=== PATIENT | male | born 1950 | race Two or more races ===

== ENCOUNTER 2020-04-23 14:50 | Inpatient (IN) | payer MEDICARE ==
[~2020-04-23] VITALS: Ht 170.2 cm; Wt 85.9 kg
[2020-04-23 17:00] VITALS: BP 154/78
--- NOTE | 2020-04-23 17:00 | NUR ---
Telemetry DIRECT admit RANULFO YU JR admitted to Telemetry unit after SBAR received. Patient oriented to DELROY BABCOCK, RN primary RN, unit, room, bed, and unit policies regarding patient care and visiting hours. TELE BOX REQUESTED FROM [place]. Patient weighed by bedscale and encouraged to call if they need something. All questions and concerns addressed, patient verbalized understanding.
[2020-04-23] MEDS ORDERED: cloNIDine HCL 0.1 MG TAB PO PRN (18:00)
[2020-04-23] MEDS ORDERED: MORPHINE SULF INJ 2 MG/ML SYRINGE 1ML IV PRN ×3 (18:00)
[2020-04-23] MEDS ORDERED: ONDANSETRON HCL 4 MG/2 ML VIAL IV PRN (18:00)
[2020-04-23] MEDS ORDERED: ALUM & MAG HYDROX-SIMETH LIQ(MAALOX) 30 ML PO ONE (18:00)
[2020-04-23] MEDS ORDERED: MORPHINE SULFATE 4 MG/ML SYR/VIAL IV PRN (18:00)
[2020-04-23] MEDS ORDERED: LORazepam 0.5 MG TAB PO PRN (18:00)
[2020-04-23] MEDS ORDERED: HYDROcodone-ACET 5/325MG TAB PO PRN (18:00)
[2020-04-23] MEDS ORDERED: NITROGLYCERIN 0.4 MG SL TAB SL PRN ×3 (18:00)
[2020-04-23 18:05] VITALS: BP 154/78
[2020-04-23] MEDS: SODIUM CHLORIDE 0.9% 1,000 ML IV SCH (18:30)
[2020-04-23 18:46] LABS: Basophils # (auto) 0 10 ^3/uL (0-0.2); Basophils % (auto) 0.5 % (0.0-2.0); Eosinophils # (auto) 0.4 10 ^3/uL (0-0.8); Eosinophils % (auto) 4.3 % (0.0-7.0); Hematocrit 46.2 % (41.0-53.0); Hemoglobin 15.8 g/dL (13.5-17.5); Lymphocytes # (auto) 2.4 10 ^3/uL (0.4-5.4); Lymphocytes % (auto) 28.9 % (10.0-50.0); Mean Corpuscular Hgb Conc. 34.2 g/dL (32.0-36.0); Mean Corpuscular Volume 102.2 fL (80.0-100.0); Monocytes # (auto) 0.7 10 ^3/uL (0-1.3); Monocytes % (auto) 7.9 % (0.0-12.0); Neutrophils # (auto) 4.8 10 ^3/uL (1.6-8.6); Neutrophils % (auto) 58.4 % (37.0-80.0); Nucleated Red Blood Cells % 0.2 %; Platelet Count (auto) 173 10^3/uL (140-450); Red Blood Cells 4.52 10^6/uL (4.5-5.90); Red Cell Distribution Width 13.8 % (11.8-14.3); White Blood Cell 8.3 10^3/uL (4.4-10.8)
[2020-04-23 18:49] LABS: Albumin 3.7 g/dL (3.4-5.0); Magnesium 2.4 mg/dL (1.6-2.6)
[2020-04-23 18:56] LABS: BUN/Creatinine Ratio 14.4; Bilirubin, Total 0.7 mg/dL (0.2-1.0); Total Protein 7.7 g/dL (6.4-8.2)
--- NOTE | 2020-04-23 19:02 | NUR ---
CRITICAL LAB: [facility] [phone] DR. HAUSER NOTIFIED.
--- NOTE | 2020-04-23 19:05 | NUR ---
NEW ORDERS FROM DR. HAUSER. ORDERS CARRIED OUT.
[2020-04-23 19:07] LABS: INR 1.01 (0.9-1.15); Partial Thromboplastin Time 29.4 sec (23.64-32.05)
[2020-04-23] MEDS ORDERED: ENOXAPARIN SOD 100 MG/1 ML SYRINGE SC ONE (19:15)
--- NOTE | 2020-04-23 19:20 | NUR ---
Opening Shift Note Patient in bed resting. AO x4 w/ HOB at 30 degrees, bed locked in lowest position, and call light within reach. No signs of distress or SOB. Will continue to monitor.
[2020-04-23] MEDS: ATORVASTATIN 20 MG TAB PO SCH (21:50)
[2020-04-23] MEDS: METOPROLOL TARTRATE 50 MG TAB PO SCH (21:51)
[2020-04-23 22:00] VITALS: BP 125/72
--- NOTE | 2020-04-23 22:05 | NUR ---
Received Tele Box #[id number].
[2020-04-24 05:00] VITALS: BP 111/62
[2020-04-24] MEDS: SODIUM CHLORIDE 0.9% 1,000 ML IV SCH ×2 (06:40→21:38)
[2020-04-24 06:45] LABS: Basophils # (auto) 0 10 ^3/uL (0-0.2); Lymphocytes # (auto) 1.9 10 ^3/uL (0.4-5.4); Monocytes # (auto) 0.6 10 ^3/uL (0-1.3); White Blood Cell 7.6 10^3/uL (4.4-10.8)
[2020-04-24 06:49] LABS: Basophils % (auto) 0.6 % (0.0-2.0); Eosinophils # (auto) 0.4 10 ^3/uL (0-0.8); Eosinophils % (auto) 5.9 % (0.0-7.0); Hematocrit 43.5 % (41.0-53.0); Lymphocytes % (auto) 25.1 % (10.0-50.0); Mean Corpuscular Hemoglobin 35.2 pg (28.0-32.0); Mean Corpuscular Hgb Conc. 34.4 g/dL (32.0-36.0); Mean Corpuscular Volume 102.4 fL (80.0-100.0); Neutrophils # (auto) 4.6 10 ^3/uL (1.6-8.6); Neutrophils % (auto) 60.4 % (37.0-80.0); Nucleated Red Blood Cells % 0.1 %; Platelet Count (auto) 161 10^3/uL (140-450); Red Blood Cells 4.25 10^6/uL (4.5-5.90); Red Cell Distribution Width 13.8 % (11.8-14.3)
[2020-04-24 06:59] LABS: INR 1.07 (0.9-1.15); Partial Thromboplastin Time 32.8 sec (23.64-32.05)
[2020-04-24 07:10] LABS: Albumin 3.3 g/dL (3.4-5.0); BUN/Creatinine Ratio 18.4; Bilirubin, Total 0.7 mg/dL (0.2-1.0); Calcium 8.5 mg/dL (8.5-10.1); Magnesium 2.2 mg/dL (1.6-2.6); Phosphorus 2.9 mg/dL (2.5-4.90); Total Protein 7.1 g/dL (6.4-8.2)
--- NOTE | 2020-04-24 07:53 | NUR ---
OPENING SHIFT NOTE Assumed care of patient. Patient is Awake and alert. No signs and symptoms of distress or SOB noted. Bed is in lowest locked position, side rails up x2, call light with in reach. Updated patient on plan of care and patient verbalized understanding. Will continue to monitor Q1hr an PRN.
[2020-04-24 08:35] VITALS: BP 119/64
[2020-04-24] MEDS: METOPROLOL TARTRATE 50 MG TAB PO SCH ×2 (10:00→21:40)
[2020-04-24] MEDS ORDERED: CLOPIDOGREL BISULFATE 75 MG TAB PO SCH (10:00)
[2020-04-24] MEDS: ASPirin 81 mg TAB PO SCH (10:12)
[2020-04-24] MEDS: DOCUSATE SOD 100 MG CAP PO SCH (10:12)
[2020-04-24] MEDS: LISINOPRIL 5 MG TAB PO SCH (10:13)
[2020-04-24] MEDS: ENOXAPARIN SOD 100 MG/1 ML SYRINGE SC SCH ×2 (10:13→21:41)
[2020-04-24] MEDS ORDERED: OPTISON 3ml Vial for INJ IV ONE (11:46)
[2020-04-24] MEDS ORDERED: IODIXANOL 320MG/ML 100ML BTL IV ONE ×2 (12:49→13:13)
[2020-04-24] MEDS ORDERED: LIDOCAINE 2%HCL (LOCAL ANESTH.) INJ 20ML MDV ONE (12:49)
[2020-04-24 13:00] VITALS: BP 160/75
[2020-04-24] MEDS ORDERED: fentaNYL CITRATE 100 MCG/2 ML VL ONE (13:12)
[2020-04-24] MEDS ORDERED: ANGIOMAX 250 MG VIAL IV ONE (13:12)
[2020-04-24] MEDS ORDERED: VERAPAMIL 2.5MG/ML INJ 2ML VIAL IV ONE (13:12)
[2020-04-24] MEDS ORDERED: MIDAZOLAM HCL 1MG/1ML-2 ML VIAL ONE (13:13)
[2020-04-24] MEDS ORDERED: SODIUM CHL 0.9% 50 ML ONE (13:13)
[2020-04-24] MEDS ORDERED: TICAGRELOR 90 MG TAB ONE (14:00)
[2020-04-24 17:00] VITALS: BP 145/77
--- NOTE | 2020-04-24 19:35 | NUR ---
Opening Shift Note Assumed care of patient, awake and alert. Patient is currently in bed with the rails up x2. Bed is locked in the lowest position and the call light is within reach. No S/S of distress/SOB or pain. Instructed on POC and to call for assist as needed. Will continue to monitor.
[2020-04-24 21:30] VITALS: BP 101/67
[2020-04-24] MEDS: ATORVASTATIN 20 MG TAB PO SCH (21:38)
[2020-04-24] MEDS ORDERED: CLOPIDOGREL 300 MG TAB PO ONE (22:00)
[2020-04-25 05:00] VITALS: BP 112/66
--- NOTE | 2020-04-25 08:04 | NUR ---
OPENING SHIFT NOTE Resumed care of patient. Patient is Awake and alert and eating breakfast comfortably in bed. No signs and symptoms of distress or SOB noted. Bed is in lowest locked position, side rails up x2, call light with in reach. Updated patient on plan of care and patient verbalized understanding. Will continue to monitor Q1hr an PRN.
[2020-04-25 09:00] VITALS: BP 107/56
[2020-04-25] MEDS: ASPirin 81 mg TAB PO SCH (09:53)
[2020-04-25] MEDS: DOCUSATE SOD 100 MG CAP PO SCH (09:53)
[2020-04-25] MEDS: SODIUM CHLORIDE 0.9% 1,000 ML IV SCH (09:53)
[2020-04-25] MEDS: LISINOPRIL 5 MG TAB PO SCH (09:54)
[2020-04-25] MEDS: ENOXAPARIN SOD 100 MG/1 ML SYRINGE SC SCH (09:55)
[2020-04-25] MEDS: METOPROLOL TARTRATE 50 MG TAB PO SCH (09:55)
[2020-04-25] MEDS ORDERED: NICOTINE 21MG/24 HR TOPICAL PATCH TD SCH (10:00)
[2020-04-25] MEDS ORDERED: CLOPIDOGREL BISULFATE 75 MG TAB PO SCH (10:00)
--- NOTE | 2020-04-25 11:11 | NUR ---
DR MCDOWELL IN TO SEE PT. CLEARED PT FROM CARDIAC PERSPECTIVE. WILL PROCEED WITH DISCHARGE.
[2020-04-25 11:34] VITALS: BP 107/56
[2020-04-25 11:40] LABS: Cholesterol 189 mg/dL (< 200); HDL Cholesterol 66 mg/dL (40-59); LDL Cholesterol 106 mg/dL (< 100); Triglycerides 126 mg/dL (< 150)
[2020-04-25 13:00] VITALS: BP 103/60
--- NOTE | 2020-04-25 13:05 | NUR ---
Discharge instructions given as ordered. Encourage to follow up with PMD as instructed. All questions and concerns addressed. Patient verbalized understanding. Medication reconciliation form completed and copy given to patient. IV removed with catheter intact, pressure dressing applied. Telemetry unit returned to ICU. Patient left with all personal belongings, accompanied by staff and family member. No distress noted at time of departure.
== END 2020-04-25 13:05 | disposition home or self-care (01) | DRG 246 ==
LOC: TELE-EAST 17:21
PROVIDERS: ADMIT Internal Medicine; ATTEND Internal Medicine
PROC: 027034Z Dilation of Coronary Artery, One Artery with Drug-eluting Intraluminal Device, Percutaneous Approach (ICD-10-PCS; principal; 2020-04-24)
PROC: 4A023N7 Measurement of Cardiac Sampling and Pressure, Left Heart, Percutaneous Approach (ICD-10-PCS; 2020-04-24)
PROC: B2111ZZ Fluoroscopy of Multiple Coronary Arteries using Low Osmolar Contrast (ICD-10-PCS; 2020-04-24)
DX: I21.19 ST elevation (STEMI) myocardial infarction involving other coronary artery of inferior wall (principal); I50.21 Acute systolic (congestive) heart failure; I16.9 Hypertensive crisis, unspecified; E66.9 Obesity, unspecified; E78.00 Pure hypercholesterolemia, unspecified; E78.5 Hyperlipidemia, unspecified; F17.210 Nicotine dependence, cigarettes, uncomplicated; I25.10 Atherosclerotic heart disease of native coronary artery without angina pectoris; M19.90 Unspecified osteoarthritis, unspecified site; Z68.29 Body mass index [BMI] 29.0-29.9, adult; Z71.6 Tobacco abuse counseling; I11.0 Hypertensive heart disease with heart failure
CPT/HCPCS: 36415; 80053; 80061; 82085; 82550; 83036; 83735; 83880; 84100; 84443; 84484; 85025; 85610; 85730; 92928; 93306; 93458; 99152; 99153; C1874; G0378; J2250; Q9956; Q9967